=== PATIENT | male | born 1980 ===

== ENCOUNTER → 2021-07-10 12:47 | Outpatient (CLI) | payer OTHER, SELFPAY ==
--- NOTE | ~2021-07-10 | MR_ITS ---
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 Cyst on back of head for se veral years. TECHNIQUE: Magnetic resonance imaging (MRI) of the brain/brain stem obtained without contrast. Sagit conchita T1, axial diffusion, gradient echo (T2*), T1, T2, FLAIR sequences obtained. Patient was then inj ected with 20 cc intravenous Multihance contrast. Axial and coronal postcontrast T1 weighted sequence s obtained. There is no prior study for comparison. FINDINGS: There is proteinaceous cystic lesion posterior aspect of scalp measuring 8 mm in thickness by 1.8 cm transverse dimension, probably a sebaceous cyst or other benign finding. No osseous involve ment. There are no areas of restricted diffusion to suggest acute infarction. There is no acute hemo rrhage seen on the T2*, a hemosiderin sensitive sequence. No intraparenchymal brain mass. The ventri cles are normal in size. There are no extra-axial collections. Flow voids are seen in the cerebral arteries on the T2-weighted sequences consistent with their expected patency. The orbits are unremar kable. Soft tissue is unremarkable. There are no areas of abnormal enhancement on the postcontrast images. Mild mucoperiosteal thickening. IMPRESSION: Posterior scalp cystic lesion, most likely benign finding. Could be sebaceous cyst, clini rob correlation. Reviewed, dictated and finalized at location . IMPRESSION: Posterior scalp cystic lesion, most likely benign finding. Could be sebaceous cyst, clinical correlation.
[2021-07-10 13:19] LABS: Estimated Glomerular Filt Rate > 60
== END ==
DX: C80.1 Malignant (primary) neoplasm, unspecified (principal); L98.9 Disorder of the skin and subcutaneous tissue, unspecified
CPT/HCPCS: 70553; A9577